=== PATIENT | male | born 1960 | race Caucasian/White ===

== ENCOUNTER 2017-09-23 17:04 | Emergency (ER) | payer MEDICAID, SELFPAY ==
[2017-09-23 17:04] VITALS: BP 132/91; PULSE 103; RESP 18; TEMP 37.2; O2SAT 96; BMI 21.3
--- NOTE | 2017-09-23 17:30 | RAD_ITS ---
STUDY: X-RAY CHEST REASON FOR EXAM: Male, 57 years old. Cough TECHNIQUE: Frontal and lateral views of the chest. COMPARISON: July 13, 2017 FINDINGS: The lungs are hyperaerated. The lungs are clear and expanded. There is no demonstrated pleural abnormality. Normal size heart. Normal mediastinum and jase. Normal visualized pulmonary arteries. Normal visualized aortic arch and descending thoracic aorta. Mild scoliosis. Normal visualized ribs, clavicles, and shoulders. There is no demonstrated abnormality of the visualized soft tissue structures of the upper abdomen. RAD/Chest PA and Lateral IMPRESSION: COPD Electronically Signed: Chandan Kapoor MD at 18:29 EST , Service support ,
[2017-09-23] MEDS: 0.9% Normal Saline 1,000 ML 1000 ML IV (17:53)
[2017-09-23] MEDS: Ketorolac 30 MG/ML Syringe IV (17:53)
[2017-09-23 18:22] LABS: BUN 16 mg/dL (7-18); Creatinine, Serum 1.27 mg/dL (0.70-1.30); Glucose 92 mg/dL (74-106)
[2017-09-23 18:23] LABS: Absolute Lymphocyte Count 1.39 X10^3/ul (0.83-4.51); Absolute Neutrophil Count 9.1 X10^3/uL (2.0-7.7); Anion Gap 8 (5-15); BUN/Creat Ratio 12.6 RATIO (10-20); Basophil# 0.03 X10^3/uL; Basophil% 0.2 % (0-1); Calcium,Total 8.7 mg/dL (8.5-10.1); Chloride 98 mmol/L (98-107); EST Glomerular Filtration Rate 62 mL/min (>60); Est Glom Filt Rate - Afr Amer 75 mL/min (>60); Estimated Creatinine Clearance 53.04 ml/min; Hematocrit 41.6 % (40-54); Hemoglobin 14.2 g/dl (13.0-16.5); Lymphocyte # 1.39 X10^3/ul (4.0); Lymphocyte % 11.2 % (19-41); Mean Corp Hgb Conc 34.1 g/gl (32-36); Mean Corpuscular Volume 87.9 fL (80-94); Mean Platelet Vol. 10.5 fl (6.2-12.0); Monocyte# 1.92 X10^3/uL; Monocyte% 15.4 % (0-10); Neutrophil # 9.08 X10^3/uL (2.7-7.7); Platelet Count 248 K/mm3 (150-450); Potassium 3.9 mmol/L (3.5-5.1); RBC Distribution Width CV 13.6 % (11.6-14.6); RBC Distribution Width SD 43.6 fl (35.1-43.9); Red Blood Count 4.73 M/mm3 (4.6-6.2); Sodium Level 134 mmol/L (136-145); White Blood Count 12.5 K/mm3 (4.4-11.0)
[2017-09-23 18:30] LABS: Differential Indicated SCAN CRITERIA MET; POSITIVE COUNT NO; POSITIVE DIFFERENTIAL YES; POSITIVE MORPHOLOGY YES
[2017-09-23 18:38] LABS: Platelet Estimate ADEQUATE (ADEQ); Red Cell Morphology NORM C+C NORMAL (NORM C&C)
[2017-09-23 19:21] VITALS: BP 118/81; PULSE 66; RESP 14; O2SAT 96
--- NOTE | 2017-09-23 20:04 | ED.DCSUM_ITS ---
- ER Visit Summary Date of Service: 09/23/17 Chief Complaint: Cough and congestion History of Present Illness: The patient is a 57 M who reports cough and congestion for the past 5 days. Cough is dry. He reports body aches. Yesterday he reports having a fever but no fever today. He does report contact with family members with influenza. Patient is already on day 5 of his illness. Physical Examination: Vital signs are unremarkable. Patient sitting upright in bed no acute distress. He has mildly dry mucous membranes. Heart is regular rate and rhythm. On lung sounds are clear. Abdomen is soft and nontender. Hypoactive bowel sounds are noted throughout. Neuro exam is unremarkable. Test Results: Two-view chest x-ray shows changes consistent with COPD. CBC was a white count 12.5 with 73% neutrophils. Chemistry studies are normal. Emergency Department Course and Treatment: Given a liter of IV fluids. He was unable to provide a urine sample. Bladder scan was performed and shows less than 100 cc of urine. At this time patient will improve. He will be discharged to home to continue supportive care. Treatment Plan: [] Disposition: Discharge Impression: Viral syndrome This note was generated with [employer] dictation software. It may contain incorrect words, spelling, and punctuation that were not noted in review of the chart prior to signing ED Disposition - Plan for ED Patient: Chief Complaint: General Illness Referrals: Samantha Porter [Primary Care Provider] -
--- NOTE | 2017-09-23 20:04 | ED.DEP ---
ED Disposition - Plan for ED Patient: Disposition: Home or Assisted Living Chief Complaint: General Illness Instructions: ED Viral Syndrome Referrals: Tj Glover,Samantha Kohler [Primary Care Provider] - As Needed
[2017-09-23 20:15] VITALS: RESP 16
--- NOTE | 2017-09-23 20:17 | ED.RN ---
REVIEWED D/C INSTRUCTIONS, FOLLOW UP CARE, AND S/S THAT WOULD WARRANT A RETURN TO THE ED WITH PT. PT VERBALIZED AN UNDERSTANDING AND DENIES FURTHER QUESTIONS FOR THIS RN. PT SKIN P/W/D, RESP EVEN AND UNLABORED, PT A&O X 3, NO DISTRESS NOTED. PT AMBULATED OUT OF ED, GAIT STEADY.
[2017-09-26 16:05] LABS: Pathologist Review Reviewed
== END 2017-09-23 20:19 | disposition home or self-care (01) ==
PROVIDERS: Emergency Provider Emergency Medicine
DX: B34.9 Viral infection, unspecified (principal); Z72.0 Tobacco use
CPT/HCPCS: 71046; 80048; 85025; 96361; 96374; 99283; J7030; A4216

== ENCOUNTER 2017-12-13 21:50 | Emergency (ER) | payer MEDICAID, SELFPAY ==
[2017-12-13 21:51] VITALS: BP 143/95
[2017-12-13 21:52] VITALS: BP 143/95; PULSE 61; RESP 18; TEMP 36.5; O2SAT 100; BMI 19.9
--- NOTE | 2017-12-13 22:24 | ED.DCSUM_ITS ---
- ER Visit Summary Date of Service: 12/13/17 Chief Complaint: Pain History of Present Illness: The patient is a 57 M with dental pain for the past week. Left maxillary molar region. No other complaints. He has follow-up with dental in just about a week. Physical Examination: Vitals unremarkable. Afebrile. Alert and oriented. No acute distress. Skin appears normal. No swelling or masses noted. Gums unremarkable. No abscess. Left maxillary molar tender to palpation. No deformity or fracture. No trismus. No tongue elevation. Airway intact. No lymphadenopathy. Good range of motion to his neck. Test Results: None indicated Emergency Department Course and Treatment: Will treat with Pen-Vee K and Motrin. Follow-up with dental. Treatment Plan: As above Disposition: Discharged Impression: 1. Toothache This note was generated with [employer] dictation software. It may contain incorrect words, spelling, and punctuation that were not noted in review of the chart prior to signing ED Disposition - Plan for ED Patient: Chief Complaint: Dental Referrals: Starr Kruse NP-C [Primary Care Provider] -
--- NOTE | 2017-12-13 22:25 | DCINST.ED_ITS ---
ED Disposition - Plan for ED Patient: Chief Complaint: Dental Instructions: ED Tooth Pain Prescriptions: Ibuprofen [Motrin] 800 mg PO TID PRN PRN #10 tab PRN Reason: Pain Penicillin V Potassium 500 mg PO 4X/DAY #40 tab Referrals: Starr Kruse, DIRECTOR OF MANUFACTURING OPERATIONS-C [Primary Care Provider] -
[2017-12-13] MEDS: Ibuprofen 600 MG Tablet PO (22:28)
[2017-12-13] MEDS: Penicillin Vk 250 MG Tablet 500 MG PO (22:28)
[2017-12-13 22:31] VITALS: BP 138/84; PULSE 62; RESP 18; O2SAT 97
== END 2017-12-13 22:35 | disposition home or self-care (01) ==
LOC: ED 22:17
PROVIDERS: Emergency Provider Emergency Medicine; Family Provider Nurse Practitioner Family; PCP Nurse Practitioner Family
DX: K08.89 Other specified disorders of teeth and supporting structures (principal); F17.210 Nicotine dependence, cigarettes, uncomplicated
CPT/HCPCS: 99283

== ENCOUNTER 2018-05-03 19:14 | Emergency (ER) | payer OTHER, SELFPAY ==
[2018-05-03 19:16] VITALS: BP 121/76; PULSE 74; RESP 17; TEMP 36.7; O2SAT 100; BMI 19.8
--- NOTE | 2018-05-03 20:14 | ED.DCSUM_ITS ---
- ER Visit Summary Date of Service: 05/03/18 Chief Complaint: Right fifth toe pain History of Present Illness: The patient is a 58 M who presents for 3 days of pain in his right fifth toe. Patient denies any injury. He is unable to localize the pain or describe it. He has no history of diabetes, arthritis, gout. Denies any fever, cough, chest pain, shortness of breath, abdominal pain, any other joint pain, any red streaking in the leg. Patient has not tried anything for the pain. Physical Examination: Patient is afebrile and hemodynamically stable. Unkempt appearing. In no distress. Examination of the feet shows thickening and elongation of the toenails. Right fifth toe has good capillary refill, tenderness along the nailbed, no erythema, no induration, no exudate, no obvious paronychia, no pain with flexion or extension of the IP or MTP joints. No appearance of asymmetry with comparison to the left fifth toe. DP pulses are 2+ and symmetric. No red streaking. No other remarkable findings. Test Results: Clinical Impression(s) from Imaging Studies Toe X-Ray 05/03/18 20:20 IMPRESSION: Soft tissue swelling without radiographic evidence for fracture. Electronically Signed: Meliza Dacosta MD at 20:30 EDT , Service support , Medications Given Discontinued Medications Naproxen (Naprosyn) 500 mg PO X1 ONE Stop: 05/03/18 20:12 Last Admin: 05/03/18 20:18 Dose: 500 mg Emergency Department Course and Treatment: Patient was given naproxen for pain. Examination showed only pain with palpation of the toenail but no signs of a paronychia or felon. X-ray was performed of the toe. It showed soft tissue swelling but no bony lesions or fractures. Because patient does have tenderness around the nailbed and with movement of the toenail, he was treated for concern for early paronychia. He was instructed in foot soaks and was prescribed mupirocin ointment to apply 3 times a day. He is to follow-up with his doctor if he continues to have pain for reevaluation. Patient had improvement of his pain with the naproxen. He was discharged home. Treatment Plan: [] Disposition: [] Impression: Early paronychia of the right fifth toe This note was generated with [facility] dictation software. It may contain incorrect words, spelling, and punctuation that were not noted in review of the chart prior to signing ED Disposition - Plan for ED Patient: Disposition: Home or Assisted Living Chief Complaint: Lower Extremity Injury Instructions: ED Fingernail Infec Prescriptions: RX: Mupirocin [Bactroban] 1 applic TOPICAL TID 7 Days #1 tube Referrals: tSarr Kruse FLASH DEVELOPER-C [Primary Care Provider] - 3-5 Days if not improving Additional Instructions: You may have an early nail infection on your right fifth toe. Soak your foot in warm water for 20 minutes 3 times a day. Afterwards dry off your toe and apply antibacterial ointment to the skin surrounding the nail. Use [id number] pain medication as needed for pain. Follow-up with your doctor for another evaluation, especially if you are not having improvement. If you have any worsening of your condition, return to emergency department for another evaluation. If you have any worsening of your condition or any new concerning symptoms, please return immediately to the emergency department for another evaluation.
[2018-05-03] MEDS: Naproxen 500 MG Tablet PO (20:18)
--- NOTE | 2018-05-03 20:20 | RAD_ITS ---
STUDY: X-RAY RIGHT FOOT, PINKY TOE REASON FOR EXAM: Male, 58 years old. Right pinky toe pain without known injury. TECHNIQUE: 4 view(s) of the toe were obtained. COMPARISON: Prior comparable comparison studies are not available for review at this time. FINDINGS: Normal visualized metatarsus. Normal metatarsophalangeal (M.T.P) joint. Normal interphalangeal joints. Normal phalanges and interphalangeal joints. There is no demonstrated fracture. There is soft tissue swelling of the pinky toe. RAD/Toe(s) Min 2 Views IMPRESSION: Soft tissue swelling without radiographic evidence for fracture. Electronically Signed: Meliza Dacosta MD at 20:30 EDT , Service support ,
--- NOTE | 2018-05-03 22:29 | ED.DEP ---
ED Disposition - Plan for ED Patient: Disposition: Home or Assisted Living Chief Complaint: Lower Extremity Injury Instructions: ED Fingernail Infec Prescriptions: Mupirocin [Bactroban] 1 applic TOPICAL TID 7 Days #1 tube Referrals: Starr Kruse NP-C [Primary Care Provider] - 3-5 Days if not improving Additional Instructions: You may have an early nail infection on your right fifth toe. Soak your foot in warm water for 20 minutes 3 times a day. Afterwards dry off your toe and apply antibacterial ointment to the skin surrounding the nail. Use [id number] pain medication as needed for pain. Follow-up with your doctor for another evaluation, especially if you are not having improvement. If you have any worsening of your condition, return to emergency department for another evaluation. If you have any worsening of your condition or any new concerning symptoms, please return immediately to the emergency department for another evaluation.
--- NOTE | 2018-05-03 22:32 | DCINST.ED_ITS ---
ED Disposition - Plan for ED Patient: Disposition: Home or Assisted Living Chief Complaint: Lower Extremity Injury Instructions: ED Fingernail Infec Prescriptions: Mupirocin [Bactroban] 1 applic TOPICAL TID 7 Days #1 tube Referrals: Starr Kruse NP-C [Primary Care Provider] - 3-5 Days if not improving Additional Instructions: You may have an early nail infection on your right fifth toe. Soak your foot in warm water for 20 minutes 3 times a day. Afterwards dry off your toe and apply antibacterial ointment to the skin surrounding the nail. Use [id number] pain medication as needed for pain. Follow-up with your doctor for another evaluation, especially if you are not having improvement. If you have any worsening of your condition, return to emergency department for another evaluation. If you have any worsening of your condition or any new concerning symptoms, please return immediately to the emergency department for another evaluation.
[2018-05-03 22:37] VITALS: BP 132/74; PULSE 99; RESP 22; O2SAT 97
--- NOTE | 2018-05-03 22:38 | ED.RN ---
THIS NURSE REVIEWED D/C INSTRUCTIONS WITH PT. PT VERBALIZED UNDERSTANDING OF INSTRUCTIONS. PT DENIES FURTHER NEEDS OR QUESTIONS AT THIS TIME.
== END 2018-05-03 22:39 | disposition home or self-care (01) ==
PROVIDERS: Emergency Provider Emergency Medicine; Family Provider Nurse Practitioner Family; PCP Nurse Practitioner Family
DX: L03.031 Cellulitis of right toe (principal); M25.571 Pain in right ankle and joints of right foot
CPT/HCPCS: 73660; 99283

== ENCOUNTER → 2020-05-15 | Outpatient (CLI) | payer MEDICAID, SELFPAY ==
[2020-05-15 12:21] LABS: Absolute Neutrophil Count 4.1 X10^3/uL (2.0-7.7); Basophil# 0.04 X10^3/uL; Basophil% 0.5 % (0-1); Eosinophil# 0.13 X10^3/uL; Eosinophils% 1.7 % (0-5); Hematocrit 42.8 % (40-54); Hemoglobin 13.9 g/dL (13.0-16.5); Lymphocyte % 28.1 % (19-41); Mean Corp Hgb Conc 32.5 g/dL (32-36); Mean Corpuscular Hgb 29.2 pg (27.0-32.0); Mean Corpuscular Volume 89.9 fL (80-94); Mean Platelet Vol. 10.1 fl (6.2-12.0); Monocyte# 1.08 X10^3/uL; Monocyte% 14.5 % (0-10); NRBC Flagged by Analyzer 0 % (0-5); Neutrophil # 4.09 X10^3/uL (2.7-7.7); Neutrophil % 54.8 % (47-70); Platelet Count 346 K/mm3 (150-450); RBC Distribution Width CV 13.1 % (11.6-14.6); RBC Distribution Width SD 43.1 fl (35.1-43.9); Red Blood Count 4.76 M/mm3 (4.6-6.2); White Blood Count 7.5 K/mm3 (4.4-11.0)
[2020-05-15 12:49] LABS: Vitamin D,25 Hydroxy 33.4 ng/mL
[2020-05-15 13:14] LABS: ALB/GLOB Ratio 0.9 RATIO (0.9-2.4); AST(SGOT) 19 U/L (15-37); Alanine Aminotransfer ALT/SGPT 20 U/L (16-61); Albumin, Serum 3.6 g/dL (3.2-5.0); Alkaline Phosphatase 52 U/L (45-117); Anion Gap 3 (5-15); BUN 10 mg/dL (7-18); Calcium,Total 8.7 mg/dL (8.5-10.1); Chloride 104 mmol/L (98-107); Cholesterol 193 mg/dL (200); Creatinine, Serum 1.11 mg/dL (0.70-1.30); EST Glomerular Filtration Rate 71 mL/min (>60); Est Glom Filt Rate - Afr Amer 86 mL/min (>60); Globulin 3.9 g/dL (2.2-4.2); Glucose 89 mg/dL (74-106); High Density Lipoprotein 58 mg/dL; Potassium 4.4 mmol/L (3.5-5.1); Protein, Total 7.5 g/dL (6.4-8.2); Sodium Level 137 mmol/L (136-145); Thyroid Stim Hormone (TSH) 0.92 uIU/mL (0.358-3.74); Triglycerides 98 mg/dL; Very Low Density Lipoprotein 20 mg/dL (5-40)
== END | disposition home or self-care (01) ==
LOC: LAB 11:54
PROVIDERS: PCP Nurse Practitioner Family
DX: Z13.9 Encounter for screening, unspecified (principal); Z12.5 Encounter for screening for malignant neoplasm of prostate
CPT/HCPCS: 36415; 80053; 80061; 82306; 84153; 84443; 85025; G0103

== ENCOUNTER → 2020-06-20 08:25 | Outpatient (CLI) | payer MEDICAID, SELFPAY ==
[2020-05-20 13:37] VITALS: BMI 20.1
--- NOTE | 2020-06-20 08:27 | CT_ITS ---
STUDY: LOW DOSE CT LUNG CANCER SCREENING REASON FOR EXAM: Male, 60 years old. LUNG CANCER SCREENING. 1 PPD X 30 YEARS RADIATION DOSAGE (If Supplied By Facility): CTDIvol = ( 2.01 ) mGy, DLP = ( 71.48 ) mGycm TECHNIQUE: No contrast was administered. Low dose technique was utilized (average mAS-38 and kVp 120). 1.25 mm axial source images with a slice interval of 1.25-mm were reconstructed in lung windows. 2.5 mm axial source images with a slice interval of 2.5-mm were reconstructed in lung windows. 5.0 mm axial source images with a slice interval of 5.0-mm were reconstructed in soft tissue windows. Nodule measured using lung windows on PACS and/or independent workstation with automated measurement of minimum and maximum diameter. Nodule measurement reported as average diameter rounded to the nearest whole number. Growth is defined as an increase ins size of greater than 1.5 mm. COMPARISON: None. NODULES: No suspicious nodules are seen. Emphysema: Hyperinflation. Emphysematous changes with scarring at the lung apices and bullous changes in the upper lobes. The largest bulla measures 1.6 cm and is in the medial aspect of the left upper lobe. Mild increased markings at the right lung base suggestive of atelectasis and/or scarring. Linear scarring with mild bronchiectasis in the medial aspect of the right upper lobe. Aorta: Atherosclerotic plaque formation of the aortic arch. Coronary arteries: Unremarkable. CT/Low Dose CT Lung Screening IMPRESSION: Lung-RADS category 2 - Continue annual screening with LDCT in 12 months. IMPORTANT NOTES FOR USE: ACR Lung-RADS Version 1.0 Assessment Categories Release Date: November 26, 2013 Category: Coded 0-4 bases on nodule(s) with highest degree of suspicion. Negative screen is defined as categories 1 and 2; a positive screen is defined as categories 3 and 4. Category 3 and 4A nodules that are unchanged on interval CT should be coded as category 2, and individuals returned to screening in 12 months. Category 4X: Category 3 or 4 nodules with additional imaging findings that increase the suspicion of lung cancer, such as spiculation, GGN that doubles in size in 1 year, enlarged lymph notes, etc. Category Modifiers: S (significant finding unrelated to lung cancer) and C (prior history of treated lung cancer) may be added to the 0-4 Lung-RADS Electronically Signed: Franky Fabian, at 10:09 EST , Service support ,
== END ==
DX: F17.210 Nicotine dependence, cigarettes, uncomplicated (principal)
CPT/HCPCS: G0297

== ENCOUNTER 2020-07-04 07:15 | Day surgery (SDC) | payer MEDICAID, SELFPAY ==
[2020-05-20 13:37] VITALS: BMI 20.1
--- NOTE | 2020-07-04 07:00 | HP_ITS ---
Intake Vital Signs 05/20/20 Height 5 ft 6 in 05/20/20 Weight: 125 lb 05/20/20 BMI 20.1 05/20/20 BP 136/87 H 05/20/20 Blood Pressure Location Rt brachial 05/20/20 Position Sitting 05/20/20 Respiration 18 05/20/20 Pulse 63 05/20/20 Pulse Source Monitor 05/20/20 Temp 97.3 F L 05/20/20 Temp Source Temporal 05/20/20 Pulse Oximetry (%) 98 05/20/20 Oxygen Delivery Method room air Intake Visit Reasons: C-Scope & EGD Chief Complaint: c-scope consult Drying Machine Tender Required: No Is patient in pain?: No Allergies No Known Allergies Allergy (Verified 05/20/20 13:39) Medications NK 05/20/20 [History Confirmed 05/20/20] PFSH Surgical History (Updated 05/20/20 @ 13:36 by Lili Cruz) No history of previous surgery (Acute) Family History (Updated 05/20/20 @ 13:36 by Lili Cruz) Father CVA (cerebral vascular accident) Social History (Updated 05/20/20 @ 13:[address] Morris Saldivar MD) Smoking Status: Current every day smoker alcohol intake: current alcohol intake frequency: holidays/special occasions only substance use type: does not use HPI HPI HPI: CATHLEEN MARIE, is a 60 M who presents to the office today for HPI HPI Surgical H&P: Yes HPI: CATHLEEN MARIE, is a 60 M who presents to the office today for Screening colonoscopy. The patient has never had a colonoscopy. He denies any abdominal pain or blood in his stool. Patient has no family history of colon cancer. The patient was also referred for possible EGD. He is not having any acid reflux or chest pain or dysphagia. ROS General General: No weight change, appetite, fatigue, colon cancer, breast cancer or weakness HEENT HEENT: No difficulty swallowing, eye injury, eye surgery, swollen glands or hoarseness Endo Endocrine: No thyroid disease, diabetes mellitus, thyroid cancer, Hair loss, heat intolerance or cold intolerance Skin Skin: No rash or changing moles Breast Breast: No left breast lump, right breast lump, nipple discharge, breast pain, abnormal mammogram, abnormal US or breast enlargement Musc Musculoskeletal: No back problems, arthritis, rheumatoid arthritis, gout or joint pain Cardio Cardiovascular: No murmur, pacemaker, heart disease, atrial fibrillation, high blood pressure, heart attack, heart stent, palpitations, shortness of breat with exertion or chest pain Psych Psychiatric: No depression, anxiety or hearing voices Resp Respiratory: No shortness of breath, No sleep apnea, No cough, No COPD, No asthma, No emphysema, No wheezing Gastro Gastrointestinal: No abdominal pain, No nausea or vomiting, No diarrhea, No constipation, No blood in stool, No acid reflux, No hemorrhoids, No ulcers, No gallbladder problem, No black,tarry stools Bobby Hematologic: No blood thinners, No blood disorders, No bleeding, No anemia, No blood clots Neuro Neurologic: No system reviewed and no additional complaints, except as docu, No as per HPI, No abnormal walking, No abnormal hearing, No abnormal movements, No abnormal speech, No behavioral changes, No burning sensations, No confusion, No seizure-like activity, No unsteadiness, No dizziness, No localized weakness, No frequent falls, No headache(s), No lack of coordination, No loss of vision, No memory loss, No numbness, No other visual disturbances, No radiating pain, No restless legs, No sensory deficit, No fainting, No tingling, No tremor(s), No weakness, No other Exam Const General: cooperative Orientation: alert, oriented x3 Chest Breast Palpation: No nipple discharge Resp Effort & Inspection: normal respiratory effort Auscultation: clear to auscultation bilaterally Cardio Rate: regular rate Rhythm: regular rhythm Heart Sounds: no murmurs GI Inspection: non-distended Palpation: soft, nontender Assessment & Plan Problems 1. Tobacco abuse Z72.0 2. Screening for colon cancer Z12.11 Plan The patient needs a screening colonoscopy. At this time I do not believe he needs an EGD as he is not having any acid reflux or dysphagia. Patient does have a smoking history but this does not warrant surveillance EGD. I explained endoscopy in detail to the patient. I explained the risks including but not limited to stroke or heart attack with anesthesia, perforation of the GI tract, bleeding, infection. I explained that any of these could necessitate further emergency surgery. The patient understands and all questions were answered sufficiently. The patient wishes to proceed with procedure. We discussed the current risks associated with COVID-19. While it is understood that there is a community spread of COVID-19, the risk of lian COVID-19 while at [facility] ([facility]) is very low; however, the risk cannot be completely mitigated because of the community spread of the disease. We discussed in detail the risk of exposure to and/or potential harm posed by the COVID-19 virus with having a surgery/procedure at this time versus the risk of delaying the surgery/procedure. It is not possible to know either the risk of delaying the surgery or procedure or chance of getting an infection with perfect accuracy, but a joint decision was made to proceed at this time with the scheduled surgery/procedure as indicated on the consent form. Patient was notified that we will need to comply with any screening or testing [facility] wishes to perform or that surgery may be delayed for any positive results. Morris Salidvar MD Pager: [facility] [address] [place] [address], [address] [place] [address] Office: Orders Orders: Colonoscopy Today Z12.11 Coding Level of Care Code Off vis,new,level 2 Diagnoses Tobacco abuse Z72.0 Screening for colon cancer Z12.11 I have re-examined the patient. There are no clinical changes since date of exam.
[2020-07-04 07:31] VITALS: BP 121/77; PULSE 51; RESP 16; TEMP 36.7; O2SAT 96; BMI 20.3
[2020-07-04] MEDS: Lactated Ringers 1,000 ML 100 ML IV (07:45)
--- NOTE | 2020-07-04 08:29 | OP.COLON_ITS ---
Patient Name: Jose Douglas Procedure Date: 07/04/2020 7:54 AM Date of : 1960 Age: 60 Procedure: Colonoscopy Indications: Screening for colorectal malignant neoplasm Providers: Morris Saldivar MD Referring MD: Samantha Kohler [facility] Medicines: Monitored Anesthesia Care Patient Profile: This is a 60 year old male. Refer to note in patient chart for documentation of history and physical. Last Colonoscopy: none. The patient's first colonoscopy is today. Complications: No immediate complications. Procedure: Pre-Anesthesia Assessment: - Prior to the procedure, a History and Physical was performed, and patient medications and allergies were reviewed. The patient's tolerance of previous anesthesia was also reviewed. The risks and benefits of the procedure and the sedation options and risks were discussed with the patient. All questions were answered, and informed consent was obtained. Prior Anticoagulants: The patient has taken no previous anticoagulant or antiplatelet agents. After reviewing the risks and benefits, the patient was deemed in satisfactory condition to undergo the procedure. After I obtained informed consent, the scope was passed under direct vision. Throughout the procedure, the patient's blood pressure, pulse, and oxygen saturations were monitored continuously. The colonoscope was introduced through the anus and advanced to the cecum, identified by appendiceal orifice and ileocecal valve. The colonoscopy was performed without difficulty. The patient tolerated the procedure well. The quality of the bowel preparation was adequate. Scope In: 8:06:35 AM Scope Withdrawal Time 0 hours 8 minutes 2 seconds Scope Out: 8:24:26 AM Total Procedure Duration Time 0 hours 17 minutes 51 seconds Findings: Many large-mouthed diverticula were found in the sigmoid colon. The exam was otherwise without abnormality on direct and retroflexion views. Impression: - Diverticulosis in the sigmoid colon. - The examination was otherwise normal on direct and retroflexion views. - No specimens collected. Recommendation: - Discharge patient to home. - Resume previous diet. - Continue present medications. - Repeat colonoscopy in 10 years for screening purposes. Procedure Code(s): --- Professional --- 13009, Colonoscopy, flexible; diagnostic, including collection of specimen(s) by brushing or washing, when performed (separate procedure) Diagnosis Code(s): --- Professional --- Z12.11, Encounter for screening for malignant neoplasm of colon K57.30, Diverticulosis of large intestine without perforation or abscess without bleeding CPT copyright 2017 [employer]. All rights reserved. The codes documented in this report are preliminary and upon improvement coordinator review may be revised to meet current compliance requirements. Morris Saldivar MD 07/04/2020 8:28:53 AM This report has been signed electronically. Number of Addenda: 0 Note Initiated On: 07/04/2020 7:54 AM
--- NOTE | 2020-07-04 08:29 | OP.CCLET_ITS ---
07/04/2020 Samantha Kohler [facility] Re : Colonoscopy procedure for Jose Douglas [facility] This procedure was performed on Saturday, July 04, 2020. My impressions and recommendations are as follows: Impressions : - Diverticulosis in the sigmoid colon. - The examination was otherwise normal on direct and retroflexion views. - No specimens collected. Recommendations : - Discharge patient to home. - Resume previous diet. - Continue present medications. - Repeat colonoscopy in 10 years for screening purposes. My findings are described in the full procedure note, which is enclosed. If I can be of further assistance, please feel free to contact me at Doctor phone number(s): , Work: . Sincerely, Morris Saldivar MD 07/04/2020 8:28:53 AM This report has been signed electronically.
[2020-07-04 08:30] VITALS: BP 108/72; BP 121/77; PULSE 49; RESP 14; TEMP 36.4; O2SAT 99
[2020-07-04 08:35] VITALS: BP 121/77; BP 96/65; PULSE 54; RESP 15; O2SAT 98
[2020-07-04 08:40] VITALS: BP 121/77; BP 98/76; PULSE 55; RESP 16; O2SAT 99
[2020-07-04 08:45] VITALS: BP 112/88; BP 121/77; PULSE 66; RESP 16; TEMP 36.3; O2SAT 99
== END 2020-07-04 09:24 | disposition home or self-care (01) ==
LOC: EN 07:15 → AC 07:16
PROVIDERS: Visit Provider Surgery
PROC: 0DJD8ZZ Inspection of Lower Intestinal Tract, Via Natural or Artificial Opening Endoscopic (ICD-10-PCS; CPT 45378; principal; 2020-07-04 07:55)
DX: Z12.11 Encounter for screening for malignant neoplasm of colon (principal); K57.30 Diverticulosis of large intestine without perforation or abscess without bleeding; Z20.828 Contact with and (suspected) exposure to other viral communicable diseases; F17.200 Nicotine dependence, unspecified, uncomplicated
CPT/HCPCS: 45378; 87426; C9803; J7120; J2405

== ENCOUNTER 2021-04-02 18:02 | Emergency (ER) | payer MEDICAID, SELFPAY ==
[2021-04-02 18:03] VITALS: BP 112/69; PULSE 60; RESP 12; TEMP 36.5; TEMP 36.6; O2SAT 98; BMI 20.5
--- NOTE | 2021-04-02 18:18 | EKG12_ITS ---
Test Reason : SYNCOPE Blood Pressure : / mmHG Vent. Rate : 066 BPM Atrial Rate : 066 BPM P-R Int : 154 ms QRS Dur : 090 ms QT Int : 380 ms P-R-T Axes : 059 074 070 degrees QTc Int : 398 ms Normal sinus rhythm with sinus arrhythmia Normal ECG Confirmed by ADAMS SHEPHERD, ZULMA ([id number]), acquisitions editor BUCKY PIEDRA ([id number]) on 04/07/2021 8:20:59 AM Referred By: Confirmed By:SOLOMON LAMAS MD
--- NOTE | 2021-04-02 18:19 | EX.ED.DYSGE1 ---
HPI History of Present Illness Chief Complaint: Syncope Informant: patient Narrative Narrative: 60-year-old male presents to the emergency department following a syncopal episode at home. Patient is postop day 6 from a prostatectomy at [facility]. He states that he has been doing quite well. He was sitting at his table for about an hour drinking coffee and water with family. He states that for several minutes he began to feel very hot sweaty and lightheaded. Eventually he stood up and ended up having syncope. He denies any chest pain or shortness of breath. He denies any palpitations. He states that he had a syncopal episode several years ago that was due to dehydration. He states that his diet has not been that great recently. He has appointment tomorrow with his surgeon. [facility] Medical History (Updated 04/02/21 @ 19:[address] Ha Correa DO) Prostate CA Home Medications aspirin 81 mg PO DAILY 04/02/21 [History Last Taken Unknown] Allergy/AdvReac Type Severity Reaction Status Date / Time No Known Allergies Allergy Verified 04/02/21 18:07 Family History (Updated 05/20/20 @ 13:36 by Lili Cruz) Father CVA (cerebral vascular accident) Surgical History (Updated 04/02/21 @ 18:[address] Ha Correa DO) No history of previous surgery S/P prostatectomy Social History Smoking Status: Current every day smoker tobacco type: cigarettes alcohol intake: current alcohol intake frequency: holidays/special occasions only substance use type: does not use ROS ROS ED Constitutional Constitutional ED: Denies chills or weight loss Eyes Eyes: Denies change in vision or diplopia ENT ENT ED: Denies ear pain, rhinorrhea or sore throat Cardiovascular Cardiovascular: Reports other Details: Syncope ; Denies chest pain, orthopnea, palpitations or racing heartbeat Respiratory/Chest Respiratory/Chest: Denies cough, dyspnea or orthopnea Gastrointestinal Gastrointestinal: Denies abdominal pain, diarrhea, nausea or vomiting Genitourinary Genitourinary ED: Denies dysuria, hematuria or urinary frequency Musculoskeletal Musculoskeletal: Denies arthralgias or myalgias Integumentary Denies abscess or rash Neurologic Neurologic: Denies headache(s) or weakness Psychiatric Psychiatric: Denies anxiety, depression, suicidal ideation or suicidal thoughts Endocrine Endocrinology: Denies polydipsia, polyphagia or polyuria Allergic/Immunologic Allergic/Immunologic ED: Denies mouth swelling, tongue swelling or urticaria EXAM Physical Exam Const Vital Signs: 04/02/21 18:03 04/02/21 18:08 04/02/21 20:03 Temperature 97.7 F L Temperature Source Oral Pulse Rate 60 73 Respiratory Rate 12 15 Respiratory Effort Normal Non-Labored Respiratory Pattern Normal Blood Pressure 112/69 127/81 H Blood Pressure Mean 83 96 Pulse Ox 98 98 Oxygen Delivery Method Room Air Room Air Positive well nourished and well developed General Appearance ED: well developed HEENT Reports normocephalic, head/scalp atraumatic and moist mucous membranes Eyes PERRL and EOMs intact bilaterally Neck no lymphadenopathy, supple and no JVD Resp normal respiratory effort and clear to auscultation bilaterally Cardio regular rate, regular rhythm and no murmurs GI normal to inspection, nondistended, normoactive bowel sounds and non-tender Palpation: soft Back/Spine no CVA tenderness and normal ROM Extremity normal to inspection General Extremety ED: Negative for edema General Extremity: Negative for edema Neuro oriented x3 and CN's II-XII intact bilaterally Sensorium / Orientation: alert Motor Exam: strength 5/5 throughout Psych mental status grossly normal Mood & Affect: Negative for depressed or tearful Skin no rashes or lesions noted and no wounds MDM MDM MDM Narrative Medical decision making narrative: Basic blood work was obtained and essentially negative. He had no events on the monitor. My interpretation of the chest x-ray is concerning for possible neoplasm in the right lower lung. I discussed this with the patient. He states that at the time that they were evaluating his prostate he believes that the chest x-ray was obtained. At this point a CTA of the chest was obtained. This is concerning in the right middle lobe for 3.5 cm area. I spoke with the patient's urologist. I also spoke with Dr. Peralta from pulmonology. We can refer him there for further evaluation. Lab Data Labs: Laboratory Results - last 24 hr 04/02/21 04/02/21 17:50 17:50 WBC 7.8 RBC 4.09 L Hgb 12.1 L Hct 37.6 L MCV 91.9 MCH 29.6 MCHC 32.2 RDW Std Deviation 48.7 H RDW Coeff of Sharon 14.5 Plt Count 403 MPV 10.1 Immature Gran % (Auto) 1.000 H Neut % (Auto) 47.0 Lymph % (Auto) 35.8 [place] % (Auto) 11.9 H Eos % (Auto) 4.0 Baso % (Auto) 0.3 Absolute Neuts (auto) 3.7 Absolute Lymphs (auto) 2.81 Nucleated RBC % 0 Sodium 137 Potassium 3.9 Chloride 104 Carbon Dioxide 31.0 Anion Gap 2 L BUN 8 Creatinine 0.99 Estim Creat Clear Calc 63.25 Est GFR (MDRD) Af Amer 98 Est GFR (MDRD) Non-Af 81 BUN/Creatinine Ratio 8.1 L Glucose 125 H Calcium 8.9 Troponin I High Sens 4 Radiography Diagnostic Testing: Radiology Impression Chest X-Ray 04/02/21 18:20 IMPRESSION: (COPD). Spiculated density in the lower right lung approximately 4 cm greatest dimension. Neoplasm is possible. CT of the chest is recommended. Electronically Signed: Oswaldo Zayas MD at 18:54 EDT , Service support , Chest CTA 04/02/21 19:15 IMPRESSION: Normal CTA chest examination, without a demonstrated pulmonary embolism or arterial dissection. COPD. Discoid area irregular pulmonary density in the right middle lobe. Possible atelectasis or scarring. Neoplasm is not excluded. PET scan or short interval follow-up recommended. Electronically Signed: Oswaldo Zayas MD at 20:45 EDT , Service support , EKG Initial EKG: Attestation: I personally reviewed and interpreted this EKG as follows: Interpretation: Sinus Rhythm Comments: EKG demonstrates a normal sinus rhythm at a rate of 66 bpm. There is no concerning features of ACS. Discharge Plan Triage Chief Complaint: Syncope ED Provider: Ha Correa Dx/Rx/DC Orders Clinical Impression: Syncope and collapse, Prostate cancer Instructions: ED Fainting, Uncertain Cause Prescriptions: No Action aspirin 81 mg tablet,delayed release (DR/EC) 81 mg PO DAILY RF: 0 Primary Care Provider: Dimple Thomas Referrals: Andrea Peralta MD [STAFF PHYSICIAN] - [facility] soon as possible [facility] [NON-STAFF] - As Needed Activity Restrictions/Additional Instructions: Please follow-up with your surgeon tomorrow as scheduled There is an area in the right middle lobe of your lung that is concerning. This will need further evaluation possibly with a PET scan or biopsy. Please call the above numbers to arrange follow-up. Disposition Disposition: Home, Self Care
--- NOTE | 2021-04-02 18:20 | RAD_ITS ---
STUDY: X-RAY CHEST REASON FOR EXAM: Male, 60 years old. syncope TECHNIQUE: Single AP portable view of the chest. COMPARISON: 09/23/2017 FINDINGS: There is hyperinflation of the lungs consistent with chronic obstructive lung disease (COPD). Spiculated density in the lower right lung approximately 4 cm greatest dimension. This was not present previously. Neoplasm is possible. CT of the chest is recommended. No definite infiltrates. No definite effusions. There is no demonstrated pleural abnormality. Normal size heart. Normal mediastinum and jase. Normal visualized pulmonary arteries. Normal visualized aortic arch and descending thoracic aorta. Normal visualized thoracic spine. Normal visualized ribs, clavicles, and shoulders. There is no demonstrated abnormality of the visualized soft tissue structures of the upper abdomen. RAD/Chest 1 View (Portable) IMPRESSION: (COPD). Spiculated density in the lower right lung approximately 4 cm greatest dimension. Neoplasm is possible. CT of the chest is recommended. Electronically Signed: Oswaldo Zayas MD at 18:54 EDT , Service support ,
[2021-04-02 18:25] LABS: Absolute Lymphocyte Count 2.81 X10^3/uL (0.83-4.51); Absolute Neutrophil Count 3.7 X10^3/uL (2.0-7.7); Basophil# 0.02 X10^3/uL; Basophil% 0.3 % (0-1); Eosinophil# 0.31 X10^3/uL; Hematocrit 37.6 % (40-54); Hemoglobin 12.1 g/dL (13.0-16.5); Lymphocyte # 2.81 X10^3/ul (0.83-4.51); Lymphocyte % 35.8 % (19-41); Mean Corp Hgb Conc 32.2 g/dL (32-36); Mean Corpuscular Hgb 29.6 pg (27.0-32.0); Mean Corpuscular Volume 91.9 fL (80-94); Mean Platelet Vol. 10.1 fl (6.2-12.0); Monocyte# 0.93 X10^3/uL; Monocyte% 11.9 % (0-10); NRBC Flagged by Analyzer 0 % (0-5); Neutrophil # 3.69 X10^3/uL (2.7-7.7); Platelet Count 403 K/mm3 (150-450); RBC Distribution Width CV 14.5 % (11.6-14.6); RBC Distribution Width SD 48.7 fl (35.1-43.9); Red Blood Count 4.09 M/mm3 (4.6-6.2); White Blood Count 7.8 K/mm3 (4.4-11.0)
[2021-04-02] MEDS: 0.9% Normal Saline 1,000 ML 1000 ML IV (18:35)
[2021-04-02 18:39] LABS: Anion Gap 2 (5-15); BUN 8 mg/dL (7-18); BUN/Creat Ratio 8.1 RATIO (10-20); Calcium,Total 8.9 mg/dL (8.5-10.1); Chloride 104 mmol/L (98-107); Creatinine, Serum 0.99 mg/dL (0.70-1.30); EST Glomerular Filtration Rate 81 mL/min (>60); Est Glom Filt Rate - Afr Amer 98 mL/min (>60); Estimated Creatinine Clearance 63.25 ml/min; Glucose 125 mg/dL (74-106); Potassium 3.9 mmol/L (3.5-5.1); Sodium Level 137 mmol/L (136-145); Troponin-I HS 4 pg/mL (3.0-78.0)
--- NOTE | 2021-04-02 19:15 | CT_ITS ---
STUDY: CTA CHEST REASON FOR EXAM: Male, 60 years old. abnormal chest xray syncope RADIATION DOSAGE (If Supplied By Facility): CTDIvol = ( 6.77 ) mGy, DLP = ( 166.49 ) mGycm TECHNIQUE: The examination was performed with the intravenous administration of IV 100mL Isovue-370. Post-processing of the angiographic images was performed, with multiplanar reformation and 3D reconstruction. Individualized dose optimization techniques were used for this CT. COMPARISON: 06/20/2020. FINDINGS: Normal enhancement of the main pulmonary artery and right and left pulmonary arteries. Normal enhancement of the bilateral peripheral pulmonary arteries. There is no demonstrated pulmonary embolism. Normal thoracic aorta and visualized great vessels. There is no demonstrated aortic dissection. Normal heart and pericardium. Normal mediastinum. Normal hilar regions. Normal visualized trachea and bronchi. The lungs are hyper expanded, with flattening of the hemidiaphragms. There is evidence of centrilobular emphysema. There is irregular discoid pulmonary density in the center of the right middle lobe, greatest dimension approximately 3.5 cm. It was not present previously. It is likely an area of scarring but neoplasm cannot be excluded. Consider PET scan or short interval follow-up. Discoid atelectasis or scarring seen across the posterior right lung base. No definite infiltrates. No effusions. Abnormal chest wall showing a small amount of subcutaneous air related to recent abdominal/pelvic surgery. Normal osseous structures. Normal visualized upper abdomen. CT/CTA Chest W/WO Contrast IMPRESSION: Normal CTA chest examination, without a demonstrated pulmonary embolism or arterial dissection. COPD. Discoid area irregular pulmonary density in the right middle lobe. Possible atelectasis or scarring. Neoplasm is not excluded. PET scan or short interval follow-up recommended. Electronically Signed: Oswaldo Zayas MD at 20:45 EDT , Service support ,
[2021-04-02 20:03] VITALS: BP 127/81; PULSE 73; RESP 15; O2SAT 98
[2021-04-02 22:14] VITALS: BP 124/84; PULSE 87; RESP 16; O2SAT 97
== END 2021-04-02 22:15 | disposition home or self-care (01) ==
PROVIDERS: Emergency Provider Emergency Medicine; PCP Nurse Practitioner Adult Health
DX: R55 Syncope and collapse (principal); C61 Malignant neoplasm of prostate; F17.210 Nicotine dependence, cigarettes, uncomplicated
CPT/HCPCS: 71045; 71275; 80048; 84484; 85025; 93005; 96360; 99284; Q9967

== ENCOUNTER → 2021-04-21 15:54 | Outpatient (CLI) | payer MEDICAID, SELFPAY ==
--- NOTE | 2021-04-21 15:00 | PET_ITS ---
EXAMINATION: FDG PET-CT INDICATIONS: A 60-year-old male with history of pulmonary nodularity. COMPARISON EXAMINATION: CT of the chest report dated 04/02/21 INDEX LESION SIZE SUV INTERPRETATION Right lower anterior lung-right middle lobe 26.1-mm (frame 162) 1.0 Quantitative criteria for viable neoplasm are not fulfilled, sequential radiologic investigation recommended TECHNIQUE: Following the intravenous administration of 11.7 mCi of F-18 deoxyglucose via the left antecubital fossa, multiplanar image acquisitions of the neck, chest, abdomen and pelvis to level of mid thigh, obtained at one hour post radiopharmaceutical administration contemporaneously interpreted with the current CT of the neck, chest, abdomen and pelvis, to level of mid thigh, dated 04/21/[address] of the chest report dated 04/02/21 reveals: BLOOD GLUCOSE LEVEL:?? 69 mg/dl?HEIGHT:?66 inches?WEIGHT: 125 lbs. FINDINGS: 1. Barely perceptible increased FDG concentration is observed in the right lower anterior lung-right middle lobe generating a calculated maximal standard uptake value of 1.0. The maximal axial diameter of the corresponding density on review of CT of the chest dated 04/21/21 is 26.1-mm. 2. Normal physiologic distribution of the radiopharmaceutical is apparent in the hepatic (1.6) and splenic parenchyma, both renal units, bladder and visualized intestinal tract. The visualized portion of the cerebral cortical-subcortical structures demonstrate symmetric and preserved glucose metabolism. Prominent radiopharmaceutical concentration is defined in the left ventricular myocardium and skeletal musculature consistent with the [place] state. (Darya and Lowodette, Journal of Nuclear Medicine Technology 31:3, 2003). Asymmetric increased tracer uptake is observed in the extracorporeal left anterior perineum without corresponding anatomic correlate most consistent with urine contamination. Pertinent CT findings are as follows: CHEST: There is atherosclerotic calcification defined in the thoracic aorta without evidence of dilatation-aneurysm formation. Coronary arterial calcification is observed. Emphysematous change is noted in the bilateral upper-mid lung zones. There are no additional parenchymal densities-nodules defined in the right and left hemithorax with discernible increased FDG concentration. ABDOMEN AND PELVIS: There is atherosclerotic calcification defined in the abdominal aorta without evidence of dilatation-aneurysm formation. Pelvic arterial calcification is observed. Bilateral inguinal soft tissue densities with fatty hilus are ametabolic. Calcified phlebolith formation is noted in the bilateral lower hemipelvis. SKELETAL: Degenerative changes are noted in the cervical, thoracic and lumbar spine without evidence of increased radiopharmaceutical concentration. PET/PET/CT Tumor Base -Thigh Init IMPRESSION: 1. NEGATIVE EXAMINATION. There is no definitive quantitative scintigraphic evidence of viable neoplasm. 2. Increased FDG distribution defined in the right lower anterior lung-right middle lobe does not fulfill quantitative criteria for viable neoplasm. (Castellanos et al, Annals of Internal Medicine, 138:724, 2003). 3. Metabolic and/or anatomic stability may be ensured in the right lower anterior lung-right middle lobe abnormality with repeat FDG PET study and/or CT of the thorax in three months if clinically indicated. (Xiu, Journal of Nuclear Medicine 45:88, P2004 Edi, Seminars in Thoracic and Cardiovascular Surgery 14:292, 2001). Electronic Signature Alex Guo D.O. Accurate Quantification of SUVs for this report are calculated using the exclusive [employer] Technology. (U.S. Patent No. [id number] [id number] 983). Standardization and correction of the FDG SUV metric via [employer] technology allow for vendor non-specific objective quantitative examination comparison and optimization of the sensitivity and specificity of the FDG PET-CT examination. Electronically Signed: Alex Guo DO at 21:28 EDT Tel , Service support ,
== END ==
PROVIDERS: PCP Nurse Practitioner Adult Health; Referring Provider Nurse Practitioner Adult Health; Visit Provider Nurse Practitioner Adult Health
DX: C34.90 Malignant neoplasm of unspecified part of unspecified bronchus or lung (principal); C61 Malignant neoplasm of prostate
CPT/HCPCS: 78815; A9552

== ENCOUNTER 2021-10-05 12:52 | Outpatient (CLI) | payer MEDICAID, SELFPAY ==
--- NOTE | 2021-10-05 12:56 | CT_ITS ---
STUDY: CT CHEST WITH CONTRAST REASON FOR EXAM: Male, 61 years old[address] Abnormal Chest [address] RADIATION DOSAGE (If Supplied By Facility): CTDIvol = ( 10.54 ) mGy, DLP = ( 219.73 ) mGycm TECHNIQUE: Transaxial imaging was performed following intravenous administration of IV 100mL Isovue-300. Multiplanar coronal and sagittal images were reformatted. Individualized dose optimization techniques were used for this CT. COMPARISON: Comparison is made with prior examination dated 04/02/2021. FINDINGS: Small benign-appearing bilateral axillary nodes. Emphysematous changes more prominent in the upper lobes bilaterally. Minimal scarring along the medial aspect of the right middle lobe as well as at the right lung base. The previously seen irregular infiltrate in the right middle lobe as resolved. There is no demonstrated pleural abnormality. Minimal coronary artery calcification. Normal mediastinum. Normal hilar regions. Normal enhanced pulmonary arteries. Atherosclerotic plaque formation of the aortic arch. Normal osseous structures. Fatty infiltration of the liver. CT/Chest WITH Contrast IMPRESSION: Emphysematous changes. No acute abnormality is seen. The previously seen irregular infiltrate in the right middle lobe has resolved. Electronically Signed: Franky Fabian MD at 15:05 EST ,
[2021-10-05 13:15] LABS: CREATININE FINGERSTICK 0.6 mg/dL (0.70-1.30); EGFR FINGERSTICK > 60.0000 mL/min (>60)
== END 2021-10-05 23:59 | disposition home or self-care (01) ==
LOC: CT 12:55
PROVIDERS: PCP Nurse Practitioner Adult Health; Referring Provider Internal Medicine Critical Care Medicine; Visit Provider Internal Medicine Critical Care Medicine
DX: R93.89 Abnormal findings on diagnostic imaging of other specified body structures (principal)
CPT/HCPCS: 71260; Q9967; A4216

== ENCOUNTER 2022-04-17 22:52 | Emergency (ER) | payer MEDICAID, SELFPAY ==
[2022-04-17 22:52] VITALS: BP 133/84; PULSE 98; RESP 19; TEMP 37.4; O2SAT 99; BMI 20.1
--- NOTE | 2022-04-17 23:11 | EX.ED.DYSGE1 ---
HPI History of Present Illness Chief Complaint: General Illness Informant: patient Onset/Context/Timing Onset: Weeks Context: Gradual Onset Timing: Intermittent Current Severity: Mild Maximum Severity: Mild Narrative Narrative: 61-year-old male smoker who denies any significant past medical history. States has had a cough for the last 4 weeks. At times a sore throat and runny nose. Patient been feeling better the last several days. He denies any fever. He denies any vomiting or diarrhea. He denies any shortness of breath. No hemoptysis. He states I think I have bronchitis. Prior similar symptoms: Yes Recent Illness/Hospitalization: No [facility] Medical History Prostate CA Home Medications aspirin 81 mg tablet,delayed release 81 mg PO DAILY 04/02/21 [History Last Taken Unknown] Allergy/AdvReac Type Severity Reaction Status Date / Time No Known Allergies Allergy Verified 11/11/21 13:47 Family History Father CVA (cerebral vascular accident) Surgical History No history of previous surgery S/P prostatectomy Social History Smoking Status: Current every day smoker tobacco type: cigarettes alcohol intake: current alcohol intake frequency: holidays/special occasions only substance use type: does not use ROS ROS ED ROS Narrative Cough. Review of Systems ROS Unobtainable: Denies due to encephalopathy Constitutional Constitutional ED: Denies chills or fever(s) Eyes Eyes: Denies blurry vision ENT ENT ED: Reports rhinorrhea and sore throat; Denies ear pain Cardiovascular Cardiovascular: Denies chest pain Respiratory/Chest Respiratory/Chest: Reports cough; Denies dyspnea or dyspnea on exertion Gastrointestinal Gastrointestinal: Denies abdominal pain, constipation, diarrhea, melena, nausea or vomiting Genitourinary Genitourinary ED: Denies dysuria or hematuria Musculoskeletal Musculoskeletal: Denies arthralgias Integumentary Denies abscess Neurologic Neurologic: Denies headache(s) Psychiatric Psychiatric: Denies anxiety Endocrine Endocrinology: Denies cold intolerance Hematologic/Lymphatic Hematologic/Lymphatic: Reports none; Denies anemia Allergic/Immunologic Allergic/Immunologic ED: Denies mouth swelling or tongue swelling EXAM Physical Exam Narrative Exam Narrative: 61-year-old male no acute distress vital signs stable afebrile does not look septic toxic or in any distress. Pulse ox 99% on room air no signs hypoxia. He sitting upright in bed. H EENT exam posterior pharynx unremarkable. Moist Riis membranes. Poor dentition. Neck nontender no lymphadenopathy. No JVD. Lungs coarse breath sounds no rales, rhonchi or wheezing. Equal symmetrical. Heart regular rhythm rate in the 90s no murmur. Chest wall nontender. Abdomen soft nontender. Moving all 4 extremities. Calves are nontender without edema or cords. Equal symmetrical industrial automation engineer strength. Dorsi plantarflexion intact. Back nontender. Posterior lung exam unremarkable. Neurologically is awake and alert with no focal motor deficits. Const Vital Signs: 04/17/22 22:52 Temperature 99.4 F H Temperature Source Temporal Pulse Rate 98 Respiratory Rate 19 H Blood Pressure 133/84 H Blood Pressure Mean 100 Pulse Ox 99 Oxygen Delivery Method Room Air Positive well nourished and well developed; Negative for obese, cachectic, contractures or unkempt General Appearance ED: well developed and NAD; Negative for unkempt, cachectic, contractures, cyanotic or diaphoretic Nutritional Appearance: Negative for cachectic or obese HEENT Reports moist mucous membranes; Denies dry mucous membranes Negative for trauma or tenderness Mouth ED: No dry mucous membranes Mouth: No dry mucous membranes Eyes PERRL and EOMs intact bilaterally General Eye ED: Negative for pale conjunctiva, scleral icterus or other Neck no lymphadenopathy, supple and no JVD General: Negative for tenderness Chest Wall inspection of chest normal and palpation of chest normal Chest: Negative for other Resp normal respiratory effort and clear to auscultation bilaterally Resp Narrative: Coarse breath sounds consistent with a history of smoking most likely has underlying COPD. No rales, rhonchi or wheezing. Equal and symmetrical. Effort and Inspection: Negative for retractions Auscultation: Negative for rales, rhonchi, wheezes or diminished lung sounds Cardio regular rate, regular rhythm, S1 normal heart sound, S2 normal heart sound and no murmurs Palpation: Negative for palpable S3 Rate: Negative for bradycardia Rhythm: Negative for abnormal rhythm GI normal to inspection, nondistended, normoactive bowel sounds, non-tender, non-distended and no masses Inspection: Negative for abdominal distention Auscultation: normoactive bowel sounds Palpation: soft; Negative for tender Back/Spine no CVA tenderness General Back: Negative for CVA tenderness Cervical Spine: Negative for cervical spine tenderness Thoracic Spine / Upper Back: Negative for thoracic spinal tenderness Lumbar Spine / Lower Back: Negative for lumbar spinal tenderness Extremity normal to inspection General Extremety ED: Negative for edema or tenderness General Extremity: Negative for edema Neuro oriented x3 and CN's II-XII intact bilaterally Sensorium / Orientation: alert; Negative for orientation impaired, lethargic or stuporous Motor Exam: strength 5/5 throughout; Negative for general weakness or strength abnormal Psych mental status grossly normal Appearance: Negative for unkempt Attitude: No agitated Mood & Affect: Negative for depressed, anxious or tearful Skin no rashes or lesions noted, no wounds and skin turgor normal Lesions: No lesion noted Rashes: No rashes noted Trauma: Negative for abrasion Wounds: Negative for wounds noted MDM MDM MDM Narrative Medical decision making narrative: 61-year-old smoker with a chronic cough. Exam benign. Discussed with patient has had 4 weeks of symptoms he is having no shortness of breath I do not think COVID testing would change his medical course or any treatment plan. I discussed with him an x-ray which she deferred at this time. He has a primary care physician no follow-up if is not improving or return if worse. Discharge Plan Triage Chief Complaint: General Illness ED Provider: Donte Lee Dx/Rx/DC Orders Clinical Impression: Bronchitis, Nicotine dependence, cigarettes, uncomplicated Instructions: ED Bronchitis, No Antibiotic (Adult), ED How to Quit Smoking Prescriptions: No Action aspirin 81 mg tablet,delayed release (DR/EC) 81 mg PO DAILY Label Comments: Take one tablet daily Primary Care Provider: Dimple Thomas Referrals: Dimple Thomas, ESTHER-C [Primary Care Provider] - 1 Week if not improving Activity Restrictions/Additional Instructions: Do what ever possible to stop smoking. Plenty of fluids and rest. Follow-up with your doctor if not improving or return. If you are not getting better we can always get a chest x-ray. Disposition Disposition: Home, Self Care
[2022-04-17 23:34] VITALS: BP 145/78; PULSE 76; RESP 17; O2SAT 99
== END 2022-04-17 23:35 | disposition home or self-care (01) ==
PROVIDERS: Emergency Provider Emergency Medicine; PCP Nurse Practitioner Adult Health; Visit Provider Emergency Medicine
DX: J40 Bronchitis, not specified as acute or chronic (principal); F17.210 Nicotine dependence, cigarettes, uncomplicated; R05.3 Chronic cough; Z79.82 Long term (current) use of aspirin
CPT/HCPCS: 99282

== ENCOUNTER 2023-01-21 10:19 | Emergency (ER) | payer MEDICAID, SELFPAY ==
[2023-01-21 10:20] VITALS: BP 145/91; PULSE 98; RESP 14; TEMP 36.1; O2SAT 99
--- NOTE | 2023-01-21 10:29 | ED.VIS.LOWEX ---
HPI History of Present Illness Chief Complaint: Lower Extremity Injury Detail of Chief Complaint: Right foot injury Informant: patient Narrative Narrative: Patient presents secondary to right foot pain. He states he was going up some steps last evening when he caught his right foot. He complains of pain across the top of his foot. He has not yet taken anything for pain. He denies paresthesias. He denies any other injury. PFSH PFS Medical History Foot injury Prostate CA Home Medications aspirin 81 mg tablet,delayed release 81 mg PO DAILY 04/02/21 [History Last Taken Unknown] Allergy/AdvReac Type Severity Reaction Status Date / Time No Known Allergies Allergy Verified 01/21/23 10:20 Family History Father CVA (cerebral vascular accident) Surgical History No history of previous surgery S/P prostatectomy Social History Smoking Status: Current every day smoker tobacco type: cigarettes alcohol intake: current alcohol intake frequency: holidays/special occasions only substance use type: does not use ROS ROS ED Constitutional Constitutional ED: Denies chills or fever(s) Eyes Eyes: Denies change in vision or discharge from eye(s) ENT ENT ED: Denies discharge from eye(s), rhinorrhea or sore throat Cardiovascular Cardiovascular: Denies chest pain or palpitations Respiratory/Chest Respiratory/Chest: Denies cough or dyspnea Gastrointestinal Gastrointestinal: Denies abdominal pain, nausea or vomiting Musculoskeletal Musculoskeletal: Reports extremity pain; Denies back pain or neck pain Integumentary Denies Abrasions or rash Neurologic Neurologic: Denies headache(s) or weakness Psychiatric Psychiatric: Denies anxiety or depression Allergic/Immunologic Allergic/Immunologic ED: Denies lip swelling or urticaria EXAM Physical Exam Const Vital Signs: 01/21/23 10:20 Temperature 97 F L Temperature Source Temporal Pulse Rate 98 Respiratory Rate 14 Blood Pressure 145/91 H Blood Pressure Mean 109 Pulse Ox 99 Oxygen Delivery Method Room Air Positive well nourished and well developed General Appearance ED: well developed HEENT Reports moist mucous membranes Neck full ROM Chest Wall inspection of chest normal and palpation of chest normal Resp normal respiratory effort and clear to auscultation bilaterally Cardio regular rate and regular rhythm GI non-tender Extremity Extremity Narrative: Tender palpation across the top proximal portion of his foot. Minimal erythema. No significant edema. Normal sensation and cap refill distally. No tenderness over the medial or lateral malleoli. No tenderness at the knee or proximal fibula. Neuro oriented x3 and no sensory deficits noted Motor Exam: strength 5/5 throughout Psych mental status grossly normal MDM MDM MDM Narrative Medical decision making narrative: Ice pack applied to the area. Patient given ibuprofen for pain and right foot x-rays obtained to evaluate for fracture. Differential diagnosis includes fracture, sprain, strain, contusion. Radiography Diagnostic Testing: Clinical Impression(s) from Imaging Studies Foot X-Ray 01/21/23 10:45 IMPRESSION: Normal x-ray examination of the foot. Electronically Signed: Tomi Post MD at 11:02 EDT Reading Location ID and State: [facility] / [place] , Service support , Treatment and Re-Evaluation Narrative: Patient reports improvement in pain secondary to ibuprofen and ice pack. Right foot x-rays per my interpretation reveal no obvious fracture. Radiology interpretation is reviewed and agrees. Brennon wrap is applied to the foot. He will continue supportive care. Discharge Plan Triage Chief Complaint: Lower Extremity Injury ED Provider: Annamarie Foley Dx/Rx/DC Orders Clinical Impression: Contusion of foot, right Instructions: ED Foot Contusion Prescriptions: No Action aspirin 81 mg tablet,delayed release (DR/EC) 81 mg PO DAILY Label Comments: Take one tablet daily Primary Care Provider: Balbina Carney Referrals: Balbina Carney MD [Primary Care Provider] - As Needed Dimple Thomas, STOCK TRANSFER CLERK-C [[facility]] - Disposition Disposition: Home, Self Care
--- NOTE | 2023-01-21 10:45 | RAD_ITS ---
STUDY: X-RAY - RIGHT FOOT CLINICAL: Male, 62 years old. Pain and swelling TECHNIQUE: 3 view(s) of the foot. COMPARISON: None. FINDINGS: Normal talus, calcaneus, and tarsal bones. Normal visualized subtalar, talonavicular, calcaneocuboid, tarsal and tarsometatarsal articulations. Normal metatarsi. Normal metatarsophalangeal joint of the great toe. Normal tibial and fibular sesamoid bones. Normal interphalangeal joint of the great toe. Normal phalanges of the great toe. Normal second through fifth metatarsophalangeal joints. Normal interphalangeal joints and phalanges of the lesser toes. The soft tissue structures are unremarkable. RAD/Foot min 3 Views IMPRESSION: Normal x-ray examination of the foot. Electronically Signed: Tomi Post MD at 11:02 EDT ,
[2023-01-21] MEDS: Ibuprofen 200 MG Tablet 400 MG PO (11:08)
== END 2023-01-21 12:12 | disposition home or self-care (01) ==
PROVIDERS: Emergency Provider Emergency Medicine; PCP Internal Medicine; Visit Provider Emergency Medicine
DX: S90.31XA Contusion of right foot, initial encounter (principal); F17.210 Nicotine dependence, cigarettes, uncomplicated; X58.XXXA Exposure to other specified factors, initial encounter
CPT/HCPCS: 73630; 99283